=== PATIENT | female | born 1965 ===

== ENCOUNTER 2017-02-03 17:47 | Emergency (ER) | payer MEDICAID ==
--- NOTE | 2017-02-03 18:48 | ED PDOC ---
Arrival/HPI - General Chief Complaint: Trauma Time Seen by Provider: 02/03/17 18:42 Historian: Patient - History of Present Illness Narrative History of Present Illness (Text): 02/03/17 18:44 51yo female BIBA for complaint of mandibular pain and bleeding from the mouth s/ p trauma. The family by the bedside states she had a mechanical fall. Fell face portillo while ambulating this evening. Complaining of pain to her chin area. Denies LOC, nausea, focal weakness, any other complaint. Past Medical History - Provider Review Nursing Documentation Reviewed: Yes - Infectious Disease Hx of Infectious Diseases: None - Reproductive Menopause: Yes - Psychiatric Hx Substance Use: No - Anesthesia Hx Anesthesia: No Hx Anesthesia Reactions: No Hx Malignant Hyperthermia: No Family/Social History - Physician Review Nursing Documentation Reviewed: Yes Family/Social History: Unknown Family HX Smoking Status: Never Smoked Hx Alcohol Use: No Hx Substance Use: No Allergies/Home Meds Allergies/Adverse Reactions: Allergies No Known Allergies Allergy (Verified 02/03/17 18:08) Review of Systems - Physician Review All systems were reviewed & negative as marked: Yes - Review of Systems Constitutional: Normal Eyes: Normal ENT: Other (chin pain) Respiratory: Normal Cardiovascular: Normal Gastrointestinal: Normal Genitourinary Female: Normal Musculoskeletal: Normal Skin: Normal, Other (Abrasion ) Neurological: Normal Endocrine: Normal Hemo/Lymphatic: Normal Psychiatric: Normal Physical Exam Vital Signs Reviewed: Yes Vital Signs Pulse Resp BP Pulse Ox 02/03/17 21:53 78 16 99 02/03/17 20:37 72 17 160/99 H 100 02/03/17 18:05 75 20 157/90 H 100 Temperature: Afebrile Blood Pressure: Normal Pulse: Regular Respiratory Rate: Normal Appearance: Positive for: Well-Appearing, Non-Toxic, Comfortable Pain Distress: None Mental Status: Positive for: Alert and Oriented X 3 - Systems Exam Head: Present: Atraumatic, Normocephalic Pupils: Present: PERRL Extroacular Muscles: Present: EOMI Conjunctiva: Present: Normal Mouth: Present: Moist Mucous Membranes. No: Normal Lips (Right sided upper swollen lip noted), Normal Tounge (2.0cm linear laceration of anterior tongue noted) Neck: Present: Normal Range of Motion Respiratory/Chest: Present: Clear to Auscultation, Good Air Exchange. No: Respiratory Distress, Accessory Muscle Use Cardiovascular: Present: Regular Rate and Rhythm, Normal S1, S2. No: Murmurs Abdomen: Present: Normal Bowel Sounds. No: Tenderness, Distention, Peritoneal Signs Back: Present: Normal Inspection Upper Extremity: Present: Normal Inspection. No: Cyanosis, Edema Lower Extremity: Present: Normal Inspection. No: Edema Neurological: Present: GCS=15, CN II-XII Intact, Speech Normal Skin: Present: Warm, Dry, Normal Color, Abrasion (Nasolabial area noted). No: Rashes Psychiatric: Present: Alert, Oriented x 3, Normal Insight, Normal Concentration Medical Decision Making ED Course and Treatment: 02/03/17 21:04 PT in ED for stated history. Active was bleeding was noted from tongue laceration which was controlled with approximating the laceration with 3sutures. Patients pain resolved in ED with medication. she was neurologically intact. Maxillofacial CT IMPRESSION: No facial bone fracture; soft tissue swelling and foreign body anterior to the mandibular symphysis; periapical erosions lower central incisors Secondary to the CT finding, no FB was noted on PE. Pt also denies any FB sensation. Lower right incisor was noted with a small crack. Result was DW the pt. She will be placed on prophylactic abx. - RAD Interpretation Radiology Orders: 02/03/17 18:42 MAXILLOFACIAL W/O CONTRAST [CT] Stat - Medication Orders Current Medication Orders: Discontinued Medications Cephalexin Monohydrate (Keflex) 500 mg PO STAT STA PRN Reason: Protocol Stop: 02/03/17 21:13 Last Admin: 02/03/17 21:26 Dose: 500 mg Lidocaine/Epinephrine (Lidocaine/Epi 1% 1:616373 20 Ml) 30 ml IJ ONCE ONE Stop: 02/03/17 21:12 Tetanus/Reduced Diphtheria/Acell Pertussis (Boostrix Vaccine Inj) 0.5 ml IM .ONCE ONE Stop: 02/03/17 21:14 Last Admin: 02/03/17 21:24 Dose: 0.5 ml Tramadol HCl (Ultram) 50 mg PO STAT STA Stop: 02/03/17 19:23 Last Admin: 02/03/17 19:37 Dose: 50 mg Re-Assess: [facility] Pain Assessment Document 02/03/17 20:37 [email or web address] (Rec: 02/03/17 21:26 [email or web address] [id number]) Pain Reassessment Is this a pain reassessment? Yes Sleep Is patient sleeping during reassessment? No Presence of Pain Presence of Pain Yes Pain Scale Used Pain Scale Used Numeric Location Upper or Lower Upper Pain Location Body Site Face Description Description Constant Intensity of Pain at present 1 Pain Behavior Facial Grimacing Aggravating Factors Changing Position Alleviating Factors/Management Position Change Techniques Alleviating Factors Medication Procedure: Wound Repair - Consent Obtained Consent obtained: Verbal - Performed by Performed by: Mid-level Provider - Indications Indication(s):: Laceration - Location Location:: tongue Shape:: Linear Dimensions Length cm: 2.0 - Anesthetic Technique Anesthetic Technique: Local Local/Regional Anesthetic:: Lidocaine 1% w/epi (5ml) - Debris Debris:: None - Complexity Complexity:: Intermediate (2 layer) - Muscle repiar layer closed with Muscle repair layer closed with:: # (3), Size (3), Type (chromic), Technique ( interrupted), Wound well approximated, Tetanus ordered - Patient tolerated procedure Patient Tolerated Procedure:: Well Disposition/Present on Arrival - Present on Arrival Any Indicators Present on Arrival: No History of DVT/PE: No History of Uncontrolled Diabetes: No Urinary Catheter: No History of Decub. Ulcer: No History Surgical Site Infection Following: None - Disposition Have Diagnosis and Disposition been Completed?: Yes Diagnosis: Laceration, Facial contusion, Abrasion Disposition: HOME/ ROUTINE Disposition Time: 21:15 Patient Plan: Discharge Condition: STABLE Discharge Instructions (ExitCare): Laceration (ED), Facial Contusion (ED) Additional Instructions: Follow up with your doctor Return to ED for any new or worsening symptoms Prescriptions: Cephalexin [Keflex] 500 mg PO TID #21 capsule Referrals: Eduardo Joy MD [Primary Care Provider] - Follow up with primary
[2017-02-03 20:38] VITALS: BP 160/99
--- NOTE | 2017-02-03 20:52 | CT ---
EXAM: CT Maxillofacial Without Intravenous Contrast CLINICAL HISTORY: 51 years old, female; Injury or trauma; Fall; Initial encounter; Abrasion; Lip/oral cavity; Lower; Patient HX: Facial/mandibular pain S/P trauma TECHNIQUE: Axial computed tomography images of the face without intravenous contrast. This CT exam was performed using one or more of the following dose reduction techniques: automated exposure control, adjustment of the mA and/or kV according to patient size, and/or use of iterative reconstruction technique. Coronal and sagittal reformatted images were created and reviewed. EXAM DATE/TIME: 02/03/2017 6:42 PM COMPARISON: There are no prior studies for comparison. FINDINGS: Soft tissues: There is soft tissue swelling anterior to the mandibular symphysis. There is a small radiopaque foreign body in the subcutaneous tissues. Bony structures: There are no facial bone fractures. There is periapical lucency about the roots of the lower central incisors,ADA 24 and 25. There is streak artifact from dental fillings There are degenerative changes in the cervical spine. Brain: No acute abnormalities are seen in visualized portion of the brain. Ears and mastoids: Middle ears and mastoids are well-aerated. Orbits: Orbital contents are unremarkable. Sinuses: There is no acute sinusitis. There is a retention cyst/polyp in an ethmoid air cell. Sphenoid is not pneumatized. Deep soft tissues: There are no facial masses. Airway: Airway is unremarkable. IMPRESSION: No facial bone fracture; soft tissue swelling and foreign body anterior to the mandibular symphysis; periapical erosions lower central incisors
[2017-02-03] MEDS ORDERED: Lidocaine/Epi 1% 1:100000 20 ML IJ ONE (21:11)
[2017-02-03] MEDS ORDERED: TDAP Vaccine 0.5 mL Syr IM ONE (21:13)
[2017-02-03 21:54] VITALS: PULSE 78; RESP 16; O2SAT 99
== END 2017-02-03 21:54 | disposition home or self-care (01) ==
LOC: ED 17:47
DX: S01.512A Laceration without foreign body of oral cavity, initial encounter (principal); S00.83XA Contusion of other part of head, initial encounter; S00.31XA Abrasion of nose, initial encounter; W19.XXXA Unspecified fall, initial encounter; Z23 Encounter for immunization